=== PATIENT | male | born 1980 | race Caucasian/White ===

== ENCOUNTER 2021-08-06 14:24 | Emergency (ER) | payer SELFPAY ==
[~2021-08-06] VITALS: Ht 172.7 cm; Wt 85.0 kg
[2021-08-06 15:33] LABS: HEMATOCRIT 46.4 % (39.0-50.0); HEMOGLOBIN 15.5 g/dl (14.0-18.0); IMMATURE GRANULOCYTES 0.2 % (0.0-5.0); MEAN CORPUSCULAR HGB 27.7 pG CALC (26.0-32.0); MEAN CORPUSCULAR HGB CONC 33.4 g/dL CAL (32.0-36.0); NEUT# 5.7 thou/uL (1.82-7.42); RED BLOOD COUNT 5.59 mill/uL (4.70-6.10); RED CELL DISTRI WIDTH 13.4 % (11.5-15.5)
[2021-08-06 15:34] LABS: URINE BILIRUBIN - DIPSTICK NEGATIVE (NEGATIVE); URINE BLOOD DIPSTICK NEGATIVE (NEGATIVE); URINE CLARITY CLEAR; URINE COLOR YELLOW; URINE GLUCOSE - DIPSTICK NEGATIVE (NEGATIVE); URINE KETONE NEGATIVE (NEGATIVE); URINE LEUK ESTERASE NEGATIVE (Negative); URINE NITRITE - DIPSTICK NEGATIVE (Negative); URINE PROTEIN - DIPSTICK NEGATIVE (NEG-TRACE); URINE UROBILINOGEN - DIPSTICK 0.2 E.U./dL (0.2)
[2021-08-06 15:53] LABS: ALBUMIN 4.6 g/dL (3.2-5.0); ALKALINE PHOSPHATASE 82 u/l (38-126); AMYLASE 198 u/l (30-110); ANION GAP 14 (6-22 (CALC)); BILIRUBIN, TOTAL 0.7 mg/dL (0.0-1.4); BUN 12 mg/dL (9-20); BUN/CREATININE RATIO 15 (12-20 (CALC)); CARBON DIOXIDE 25 mmol/l (22-30); CHLORIDE 102 mmol/l (95-108); CREATININE 0.8 mg/dL (0.7-1.3); GFR > 60 ML/MIN (>=60 (CALC)); GFR FOR AFR.AMER. > 60 ML/MIN (>=60 (CALC)); LIPASE 838 u/l (23-300); POTASSIUM 4.2 mmol/l (3.5-5.1); SGOT/AST 37 u/l (17-59); SODIUM 137 mmol/l (137-146); TOTAL PROTEIN 7.8 g/dL (6.3-8.2)
[2021-08-06 16:05] LABS: MYOGLOBIN 20 ng/mL (0 - 121)
[2021-08-06 19:53] VITALS: BP 115/87
== END 2021-08-06 20:00 | disposition home or self-care (01) | DRG 313 ==
LOC: ED 14:24
DX: R07.89 Other chest pain (principal); S46.812A Strain of other muscles, fascia and tendons at shoulder and upper arm level, left arm, initial encounter; F17.210 Nicotine dependence, cigarettes, uncomplicated; X58.XXXA Exposure to other specified factors, initial encounter; Z86.718 Personal history of other venous thrombosis and embolism; Z86.711 Personal history of pulmonary embolism; Z95.828 Presence of other vascular implants and grafts; Z20.822 Contact with and (suspected) exposure to COVID-19
CPT/HCPCS: Q9967

== ENCOUNTER 2022-04-09 10:19 | Emergency (ER) | payer SELFPAY ==
[~2022-04-09] VITALS: Ht 172.7 cm; Wt 72.7 kg
[2022-04-09 10:33] VITALS: BP 113/89
[2022-04-09 10:48] VITALS: BP 111/83
[2022-04-09 11:00] VITALS: BP 114/81
[2022-04-09 11:30] VITALS: BP 111/74
[2022-04-09 12:00] VITALS: BP 114/78
[2022-04-09 12:07] LABS: HEMATOCRIT 48.7 % (39.0-50.0); HEMOGLOBIN 16.6 g/dl (14.0-18.0); IMMATURE GRANULOCYTES 0.3 % (0.0-5.0); MEAN CELL VOLUME 83.2 fL CALC (80.0-100.0); MEAN CORPUSCULAR HGB 28.4 pG CALC (26.0-32.0); MEAN CORPUSCULAR HGB CONC 34.1 g/dL CAL (32.0-36.0); NEUT# 5.75 thou/uL (1.82-7.42); RED BLOOD COUNT 5.85 mill/uL (4.70-6.10); RED CELL DISTRI WIDTH 14.3 % (11.5-15.5)
[2022-04-09] MEDS ORDERED: PREVACID30 M3 PO (12:25)
[2022-04-09] MEDS ORDERED: ANUCORT-HC25 MG RE (12:25)
[2022-04-09 12:30] VITALS: BP 106/77
[2022-04-09 12:45] LABS: ALBUMIN 4.3 g/dL (3.2-5.0); ALKALINE PHOSPHATASE 87 u/l (38-126); AMYLASE 115 u/l (30-110); ANION GAP 10 (6-22 (CALC)); BILIRUBIN, TOTAL 0.8 mg/dL (0.0-1.4); BUN 11 mg/dL (9-20); BUN/CREATININE RATIO 18 (12-20 (CALC)); CARBON DIOXIDE 25 mmol/l (22-30); CHLORIDE 106 mmol/l (95-108); CREATININE 0.6 mg/dL (0.7-1.3); GFR FOR AFR.AMER. > 60 ML/MIN (>=60 (CALC)); GFR OTHER RACES > 60 ML/MIN (>=60 (CALC)); LIPASE 167 u/l (23-300); POTASSIUM 3.9 mmol/l (3.5-5.1); SGOT/AST 42 u/l (17-59); SODIUM 137 mmol/l (137-146); TOTAL PROTEIN 7.5 g/dL (6.3-8.2)
[2022-04-09 13:05] LABS: MYOGLOBIN 19 ng/mL (0 - 121)
== END 2022-04-09 12:59 | disposition home or self-care (01) | DRG 395 ==
LOC: ED 10:19
PROVIDERS: Emergency Medicine
DX: K64.8 Other hemorrhoids (principal); F17.210 Nicotine dependence, cigarettes, uncomplicated; T47.1X6A Underdosing of other antacids and anti-gastric-secretion drugs, initial encounter; Z91.120 Patient's intentional underdosing of medication regimen due to financial hardship; Z86.718 Personal history of other venous thrombosis and embolism; Z86.14 Personal history of Methicillin resistant Staphylococcus aureus infection; Z87.11 Personal history of peptic ulcer disease

== ENCOUNTER 2022-08-25 08:04 | Emergency (ER) | payer SELFPAY ==
[~2022-08-25] VITALS: Ht 172.7 cm; Wt 73.0 kg
[~2022-08-25 08:04] MED LIST: ANUCORT-HC25 MG RE; PREVACID30 M3 PO
[2022-08-25 08:08] VITALS: BP 116/75
[2022-08-25 08:30] VITALS: BP 100/75
[2022-08-25 09:00] VITALS: BP 102/70
== END 2022-08-25 09:10 | disposition home or self-care (01) | DRG 556 ==
LOC: ED 08:04
DX: M79.641 Pain in right hand (principal)

== ENCOUNTER 2022-10-23 05:36 | Emergency (ER) | payer SELFPAY ==
[~2022-10-23] VITALS: Ht 172.7 cm; Wt 75.0 kg
[2022-10-23] VITALS (12 sets, daily range): BP systolic 98–128; BP diastolic 67–92
[2022-10-23 06:16] LABS: BASO% 0.4 % (0-3); EOS% 2.1 % (0-8); HEMOGLOBIN 17.6 g/dl (14.0-18.0); IMMATURE GRANULOCYTES 0.1 % (0.0-5.0); LYMPH% 29.4 % (15-41); MEAN CELL VOLUME 85.4 fL CALC (80.0-100.0); MEAN CORPUSCULAR HGB 28.9 pG CALC (26.0-32.0); MEAN CORPUSCULAR HGB CONC 33.8 g/dL CAL (32.0-36.0); NEUT# 4.35 thou/uL (1.82-7.42); RED BLOOD COUNT 6.09 mill/uL (4.70-6.10); RED CELL DISTRI WIDTH 13.5 % (11.5-15.5)
[2022-10-23 06:23] LABS: ALBUMIN 4.9 g/dL (3.2-5.0); ALKALINE PHOSPHATASE 80 u/l (38-126); ANION GAP 13 (6-22 (CALC)); BUN 12 mg/dL (9-20); BUN/CREATININE RATIO 18 (12-20 (CALC)); CARBON DIOXIDE 24 mmol/l (22-30); CHLORIDE 108 mmol/l (95-108); CREATININE 0.7 mg/dL (0.7-1.3); GFR FOR AFR.AMER. > 60 ML/MIN (>=60 (CALC)); GFR OTHER RACES > 60 ML/MIN (>=60 (CALC)); LIPASE 488 u/l (23-300); POTASSIUM 4.1 mmol/l (3.5-5.1); SGOT/AST 39 u/l (17-59); SODIUM 140 mmol/l (137-146); TOTAL PROTEIN 8.2 g/dL (6.3-8.2)
[2022-10-23 06:26] LABS: BILIRUBIN, TOTAL 1.6 mg/dL (0.0-1.4)
[2022-10-23 07:22] LABS: URINE BILIRUBIN - DIPSTICK NEGATIVE (NEGATIVE); URINE BLOOD DIPSTICK NEGATIVE (NEGATIVE); URINE COLOR YELLOW; URINE GLUCOSE - DIPSTICK NEGATIVE (NEGATIVE); URINE KETONE NEGATIVE (NEGATIVE); URINE LEUK ESTERASE NEGATIVE (NEGATIVE); URINE PROTEIN - DIPSTICK NEGATIVE (NEG-TRACE)
[2022-10-23 07:27] LABS: URINE NITRITE - DIPSTICK NEGATIVE (Negative)
[2022-10-23] MEDS ORDERED: ONDANSETRON4 MG PO (08:43)
[2022-10-23] MEDS ORDERED: PREVACID30 M3 PO (08:43)
[2022-10-23] MEDS ORDERED: ULTRAM50 MG PO (08:43)
== END 2022-10-23 08:50 | disposition home or self-care (01) | DRG 392 ==
LOC: ED 05:36
PROVIDERS: Family Medicine
DX: K29.70 Gastritis, unspecified, without bleeding (principal)
CPT/HCPCS: Q9967

== ENCOUNTER 2022-12-11 05:37 | Emergency (ER) | payer SELFPAY ==
[~2022-12-11] VITALS: Ht 172.7 cm; Wt 70.4 kg
[~2022-12-11 05:37] MED LIST changes: +ONDANSETRON4 MG PO; +ULTRAM50 MG PO
[2022-12-11 05:44] VITALS: BP 132/85
[2022-12-11 05:45] VITALS: BP 128/83
[2022-12-11 06:00] VITALS: BP 130/84
[2022-12-11 06:15] VITALS: BP 131/83
[2022-12-11 06:30] VITALS: BP 121/83
[2022-12-11 06:32] VITALS: BP 121/83
[2022-12-11] MEDS ORDERED: TAM75CAP PO (06:34)
== END 2022-12-11 06:48 | disposition home or self-care (01) | DRG 195 ==
LOC: ED 05:37
DX: J10.1 Influenza due to other identified influenza virus with other respiratory manifestations (principal); F17.210 Nicotine dependence, cigarettes, uncomplicated; Z86.718 Personal history of other venous thrombosis and embolism

== ENCOUNTER 2023-01-16 05:57 | Emergency (ER) | payer SELFPAY ==
[~2023-01-16] VITALS: Ht 172.7 cm; Wt 75.0 kg
[2023-01-16] VITALS (10 sets, daily range): BP systolic 97–126; BP diastolic 65–90
[~2023-01-16 05:57] MED LIST changes: +TAM75CAP PO
[2023-01-16 06:36] LABS: BASO% 0.3 % (0-3); EOS% 2.3 % (0-8); HEMATOCRIT 47.8 % (39.0-50.0); HEMOGLOBIN 15.8 g/dl (14.0-18.0); IMMATURE GRANULOCYTES 0.3 % (0.0-5.0); LYMPH% 35.5 % (15-41); MEAN CELL VOLUME 87.4 fL CALC (80.0-100.0); MEAN CORPUSCULAR HGB 28.9 pG CALC (26.0-32.0); MEAN CORPUSCULAR HGB CONC 33.1 g/dL CAL (32.0-36.0); MONO% 9.5 % (2-13); NEUT# 3.63 thou/uL (1.82-7.42); NEUT% 52.1 % (42-76); RED BLOOD COUNT 5.47 mill/uL (4.70-6.10); RED CELL DISTRI WIDTH 13.7 % (11.5-15.5)
[2023-01-16 06:53] LABS: ALBUMIN 4.2 g/dL (3.2-5.0); ALKALINE PHOSPHATASE 66 u/l (38-126); ANION GAP 8 (6-22 (CALC)); BILIRUBIN, TOTAL 0.8 mg/dL (0.2-1.3); BUN 7 mg/dL (9-20); BUN/CREATININE RATIO 10 (12-20 (CALC)); CARBON DIOXIDE 28 mmol/l (22-30); CHLORIDE 107 mmol/l (95-108); CREATININE 0.7 mg/dL (0.7-1.3); GFR FOR AFR.AMER. > 60 ML/MIN (>=60 (CALC)); GFR OTHER RACES > 60 ML/MIN (>=60 (CALC)); POTASSIUM 4.5 mmol/l (3.5-5.1); SGOT/AST 25 u/l (17-59); SODIUM 139 mmol/l (137-146); TOTAL PROTEIN 7.1 g/dL (6.3-8.2)
[2023-01-16 07:48] LABS: URINE BILIRUBIN - DIPSTICK NEGATIVE (NEGATIVE); URINE BLOOD DIPSTICK NEGATIVE (NEGATIVE); URINE COLOR YELLOW; URINE GLUCOSE - DIPSTICK NEGATIVE (NEGATIVE); URINE KETONE NEGATIVE (NEGATIVE); URINE LEUK ESTERASE NEGATIVE (NEGATIVE); URINE NITRITE - DIPSTICK NEGATIVE (Negative); URINE PROTEIN - DIPSTICK NEGATIVE (NEG-TRACE); URINE SPECIFIC GRAVITY <=1.005; URINE UROBILINOGEN - DIPSTICK 0.2 E.U./dL (0.2)
== END 2023-01-16 08:51 | disposition home or self-care (01) | DRG 103 ==
LOC: ED 05:57
PROVIDERS: Family Medicine
DX: R51.9 Headache, unspecified (principal); F17.200 Nicotine dependence, unspecified, uncomplicated; Z86.718 Personal history of other venous thrombosis and embolism; Z95.828 Presence of other vascular implants and grafts